=== PATIENT | female | born 1995 | race Caucasian/White ===

== ENCOUNTER → 2020-01-21 09:01 | Outpatient (CLI) | payer BC, SELFPAY ==
[2020-01-21 09:52] LABS: Add Manual Diff / Slide Review NO; Basophils Absolute Auto 0 /uL (0-100); Basophils Percent Auto 0.2 % (0-2); Eosinophils Absolute Auto 400 /uL (0-450); Eosinophils Percent Auto 3.1 % (2-4); Hematocrit 38.7 % (36-46); Hemoglobin 12.9 g/dL (12.0-16.0); Lymphocytes Absolute Auto 1500 /uL (1100-4500); Lymphocytes Percent Auto 12.8 % (25-40); Mean Corpuscular HGB Conc 33.5 % (30-36); Mean Corpuscular Hemoglobin 28.7 PG (26-34); Mean Corpuscular Volume 85.7 fL (80-100); Monocytes Absolute Auto 600 /uL (0-900); Neutrophils Absolute Auto 9500 /uL (1500-7000); Neutrophils Percent Auto 78.9 % (50-75); Platelet Count 217 X10^3/uL (150-400); Red Blood Cell Count 4.52 X10^6/uL (4.0-5.2); Red Cell Distribution Width 14.7 % (11.6-14.8)
[2020-01-21 11:09] LABS: Appearance Urine UA CLEAR; Bilirubin Urine UA NEGATIVE (NEGATIVE); Color Urine UA YELLOW; Glucose Urine UA NEGATIVE (Negative); Ketones Urine UA NEGATIVE (NEGATIVE); Leukocyte Esterase Urine UA NEGATIVE (NEGATIVE); Nitrite Urine UA NEGATIVE (Negative); Occult Blood Urine UA NEGATIVE (Negative); Protein Urine UA NEGATIVE (Negative); Specific Gravity Urine UA 1.015 (1.000-1.035); Urobilinogen Urine UA 0.2 E.U./dL (0.2)
[2020-01-21 11:40] LABS: Hepatitis B Surface Antigen NEGATIVE s/c (NEGATIVE); Rubella Antibody IgG 46.9 IU/mL (>15)
[2020-01-21 11:41] LABS: pH Urine UA 6.5 (4.5-8.0)
[2020-01-21 11:59] LABS: HIV 1 & 2 Ab/Ag 4th Gen Combo NEGATIVE (NEGATIVE); Hep C Virus Ab w/Reflex Quant NEGATIVE s/c (NEGATIVE)
[2020-01-22 04:07] LABS: RPR Screen Non Reactive (Non Reactive)
[2020-01-22 07:35] LABS: Varicella IgG Antibody 878 index (Immune >165)
== END ==
DX: Z34.02 Encounter for supervision of normal first pregnancy, second trimester (principal); Z3A.15 15 weeks gestation of pregnancy
CPT/HCPCS: 36415; 80055; 81003; 86787; 86803; 86850; 86900; 86901; 87086; 87389

== ENCOUNTER → 2020-02-17 12:08 | Outpatient (CLI) | payer BC, SELFPAY ==
[2020-02-19 20:36] LABS: AFP, Serum 37.1 ng/mL (.); Estriol, Free 1.11 ng/mL (.); Inhibin A, Dimeric 97.58 pg/mL (.); Inhibin A, MoM 0.57 (.); Maternal Ethnicity Caucasian (.); Maternal Weight 171 lbs (.); Number of Fetuses No (.); OSBR Risk 1 IN 10000 (.); Results Report (.); Test Results *Screen Negative* (.); hCG, MoM 0.76 (.); hCG, Serum 16794 mIU/mL (.)
== END ==
PROVIDERS: Referring Provider Obstetrics & Gynecology; Visit Provider Obstetrics & Gynecology
DX: Z34.02 Encounter for supervision of normal first pregnancy, second trimester (principal); Z36.0 Encounter for antenatal screening for chromosomal anomalies; Z3A.19 19 weeks gestation of pregnancy
CPT/HCPCS: 36415; 82105; 82677; 84702; 86336

== ENCOUNTER → 2020-02-21 16:03 | Outpatient (CLI) | payer BC, SELFPAY ==
--- NOTE | 2020-02-21 16:04 | DI.US.S_ITS ---
PROCEDURE: US OB >= 14 WEEKS FETUS INDICATIONS: 20 WEEK ANATOMY SCAN OUTSIDE/PRIOR DATING DATA: Last menstrual period (LMP): 10/02/19. LMP-based estimated date of delivery (AUREA): 07/26. First dating scan (date and location): 01/21/20. Estimated date of delivery (AUREA) from first dating scan: 07/03/20. TECHNIQUE: Real-time scanning was performed of the fetus, with image documentation and biometric measurements. COMPARISON: [facility], , OB >= 14 WEEKS FETUS, 01/21/2020, 8:42. FINDINGS: General: A single living intrauterine gestation is present. Presentation: Vertex. Placenta: Placental position is posterior, without previa. Amniotic fluid index: 10.9 cm, normal range is 5-24 cm. heart rate: 143 beats per minute. Maternal cervical canal: 4.5 cm long. Normal lower limit is 2.5 cm. biometrics: Biparietal diameter: 5.0 cm, 21 weeks, 2 days Head circumference: 18.6 cm, 20 weeks, 6 days Abdominal circumference: 14.9 cm, 20 weeks, one day Femur length: 3.4 cm, 20 weeks, 5 days Estimated gestational age from initial scan: 21 weeks, zero days Composite gestational age from present scan: 20 weeks, 6 days Estimated weight and percentile: 359 g, 22nd percentile Measurement variability for biometric dating: +/- 7 days from 14 weeks to 15 weeks 6 days gestation, +/- 10 days from 16 weeks to 21 weeks 6 days gestation, +/- 2 weeks from 22 weeks to 27 weeks 6 days gestation, +/- 3 weeks for 28 weeks gestation or later. weight reference: 4500 g or EFW >90/95% is considered macrosomia or large for gestational age. EFW <10% is small for gestational age. EFW 5% or less is considered intra-uterine growth restriction. Anatomic survey: Neuro: Ventricles are non-dilated at less than 10 mm. Cisterna magna is normal at 3-11 mm. Cerebellum is normal in size and morphology. Nuchal skin fold: Normal at less than 6 mm between 14-21 weeks gestational age. Face: Nose and lips, facial profile are normal. Spine: No evidence for spina bifida. Heart: The 4 chamber heart has a normal sonographic appearance. The outflow tracts are poorly characterized. Diaphragm: Diaphragm is intact. Stomach: Left-sided stomach is present. Kidneys: No hydronephrosis. Normal is less than 5 mm in 2nd trimester, less than 7 mm in 3rd trimester. Cord: 3-vessel cord has orthotopic insertion. Bladder: Normal in size. Extremities: All 4 extremities identified. IMPRESSION: 1. Single live intrauterine gestation with a composite gestational age of 20 weeks, 6 days, which is concordant with dates by initial scan. 2. Poor visualization of the ventricular outflow tracts. Otherwise no sonographic anatomic abnormalities. Dictated by: Yesy Aguirre M.D. on 02/21/2020 at 20:36 Approved by: Yesy Aguirre M.D. on 02/21/2020 at 20:42
== END ==
PROVIDERS: Referring Provider Obstetrics & Gynecology; Visit Provider Obstetrics & Gynecology
DX: Z34.02 Encounter for supervision of normal first pregnancy, second trimester (principal); Z3A.20 20 weeks gestation of pregnancy
CPT/HCPCS: 76811

== ENCOUNTER → 2020-03-09 12:18 | Outpatient (CLI) | payer BC, SELFPAY ==
--- NOTE | 2020-03-09 12:21 | DI.US.S_ITS ---
PROCEDURE: US OB FOLLOW UP INDICATIONS: RE-EVALUATE OUTFLOW TRACTS OUTSIDE/PRIOR DATING DATA: Last menstrual period (LMP): 10/02/19. LMP-based estimated date of delivery (AUREA): 07/08/20. First dating scan (date and location): 01/21/20. Estimated date of delivery (AUREA) from first dating scan: 07/03/20. TECHNIQUE: Real-time scanning was performed of the fetus, with image documentation. Endovaginal scanning: Deferred COMPARISON: [facility], OB >= 14 WEEKS FETUS, 02/21/2020, 16:19. FINDINGS: A single living intrauterine gestation is present. Presentation: Breech. Placenta: Placental position is posterior, without previa. Amniotic fluid index: 15.6 cm, normal range is 5-24 cm. largest pocket is 4.7 cm. heart rate: 133 beats per minute. Maternal cervical canal: 3.3 cm long. Normal lower limit is 2.5 cm. Estimated gestational age from initial scan: 23 weeks, 3 days IMPRESSION: 1. Single living intrauterine . 2. Cardiac outflow tracts are well-seen and appear normal. Dictated by: Trudy Medrano M.D. on 03/09/2020 at 16:33 Approved by: Trudy Medrano M.D. on 03/09/2020 at 16:36
== END ==
PROVIDERS: Referring Provider Obstetrics & Gynecology; Visit Provider Obstetrics & Gynecology
DX: Z36.2 Encounter for other antenatal screening follow-up (principal); Z3A.23 23 weeks gestation of pregnancy
CPT/HCPCS: 76816

== ENCOUNTER → 2020-04-07 12:27 | Outpatient (CLI) | payer BC, SELFPAY ==
[2020-04-07 14:29] LABS: Hematocrit 36.5 % (36-46); Hemoglobin 12.4 g/dL (12.0-16.0)
[2020-04-07 14:42] LABS: GTT (PREG) 1 Hour PP 50gm Dose 119 mg/dL (76-139)
== END ==
DX: Z34.02 Encounter for supervision of normal first pregnancy, second trimester (principal); Z3A.26 26 weeks gestation of pregnancy
CPT/HCPCS: 36415; 82950; 85014; 85018

== ENCOUNTER → 2020-06-10 08:38 | Outpatient (CLI) | payer BC, SELFPAY | PROVIDERS: Visit Provider Specialist | DX: Z34.03 Encounter for supervision of normal first pregnancy, third trimester (principal) ==

== ENCOUNTER → 2020-06-18 10:28 | Outpatient (CLI) | payer BC, SELFPAY ==
[2020-06-19 10:13] LABS: Strep Grp B PCR NEG for Grp B Strep
== END ==
PROVIDERS: Visit Provider Obstetrics & Gynecology
DX: Z34.03 Encounter for supervision of normal first pregnancy, third trimester (principal); Z3A.37 37 weeks gestation of pregnancy
CPT/HCPCS: 87653

== ENCOUNTER 2020-07-07 09:13 | Outpatient (CLI) | payer BC, SELFPAY ==
--- NOTE | 2020-07-08 21:34 | PM.OBTRLD ---
Visit Information Visit Information Date of evaluation: 07/07/20 Primary OB Provider: Ekaterina Sandoval Reason for Evaluation: Yes non-stress test non-stress test reason: other (40 weeks) FOR[facility]LY [facility] Medical History (Updated 02/06/20 @ 18:45 by Shelli Plascencia) Asthma (Acute ~1998) Internal hemorrhoid (Acute ~2013) Migraine (Acute ~2009) Mononucleosis (Acute) Seasonal allergic rhinitis (Acute) Surgical History (Updated 03/15/20 @ 20:15 by Shelli Plascencia) Anesthesia (Resolved) History of endoscopy (Acute) History of oral surgery (Acute) [place] teeth removed (Acute) Family History (Updated 03/15/20 @ 20:19 by Shelli Plascencia) Mother Leaky heart valve Hypothyroid Heart palpitations Endometriosis Father Diabetes mellitus Grandmother Hyperlipidemia Diabetes mellitus Cancer History of heart disease Hypertension Grandfather Hyperlipidemia Leaky heart valve Hypertension Grandmother Diabetes mellitus Hyperlipidemia History of open heart surgery History of heart disease Hypertension Lung cancer Grandfather Diabetes mellitus Hypertension Hyperlipidemia Social History marital status: household members: spouse and family (Currently living with extended family) pets and animals: Yes (X 3 dogs in family unit now) education level: college (PhD Student) current occupational exposures/hazards: No 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
== END 2020-07-07 10:03 | disposition home or self-care (01) ==
LOC: LABOR 09:49 → OB 07-08 10:26
PROVIDERS: PCP Obstetrics & Gynecology; Referring Provider Obstetrics & Gynecology; Visit Provider Obstetrics & Gynecology
DX: O48.0 Post-term pregnancy (principal); Z3A.40 40 weeks gestation of pregnancy
CPT/HCPCS: 59025; G0378; G0379

== ENCOUNTER 2020-07-11 09:04 | Inpatient (IN) | payer BC, SELFPAY ==
[2020-07-11 10:29] LABS: Add Manual Diff / Slide Review NO; Basophils Absolute Auto 100 /uL (0-100); Basophils Percent Auto 0.9 % (0-2); Eosinophils Absolute Auto 200 /uL (0-450); Hematocrit 40.4 % (36-46); Hemoglobin 13.5 g/dL (12.0-16.0); Lymphocytes Absolute Auto 1800 /uL (1100-4500); Lymphocytes Percent Auto 16.1 % (25-40); Mean Corpuscular HGB Conc 33.4 % (30-36); Monocytes Absolute Auto 700 /uL (0-900); Monocytes Percent Auto 6.1 % (3-14); Neutrophils Absolute Auto 8200 /uL (1500-7000); Neutrophils Percent Auto 74.9 % (50-75); Platelet Count 176 X10^3/uL (150-400); Red Blood Cell Count 4.65 X10^6/uL (4.0-5.2); Red Cell Distribution Width 13.6 % (11.6-14.8); White Blood Cell Count 10.9 X10^3/uL (4.5-11.0)
[2020-07-11 10:58] LABS: COVID19 -Nasal RAPID Negative (Negative)
[2020-07-11] MEDS: LACTATED RINGERS 1,000 ML 100 ML IV (11:02)
[2020-07-11] MEDS: CEFAZOLIN 2 GM/100 ML FROZ.PIGGY IV (11:02)
[2020-07-11 11:21] VITALS: BP 112/70
--- NOTE | 2020-07-11 17:08 | P.HPOB_ITS ---
OB HPI Date/Time Date of admission: 07/11/20 Date Patient Seen: 07/11/20 Time Patient Seen: 08:45 History of Present Condition Chief complaint: Rule out ruptured membranes : 1 Para: 0 Estimated Date of Delivery: 07/08/20 Estimated Gestational Age (weeks): 40+ 3 Narrative: Elizabeth Bush is a 24 year old female 1 para 0 with leakage of fluid starting at 9:00 p.m. last evening. She had a few episodes of trickling overnight. Small amount of bloody discharge. No significant contractions. Indications Indication for induction OB: other (Leakage of fluid) History of Present care: good care, initiated at week # (8), number of visits (14) and pounds weight gain Dating criteria: LMP confirmed by 1st trimester US Ultrasounds: normal 1st trimester US and normal mid trimester US Obstetrical complications: none Medical complications: none Preadmission Labs Blood type: A (+) positive -: Antibody screen: negative, GBS status: negative, HBsAG: negative, HIV: negative and RPR/VDLR: negative -: Rubella: immune and Varicella: immune HCT: 40.4 HCAB: negative PAP: Normal Quad screen: Normal Urine: Negative 1 hr GTT: 119 Evaluation Evaluation Baseline heart rate: 135 Variability: Moderate (11-25) monitor accelerations: Present monitor decelerations: Absent Contraction Frequency (minutes): 3 Uterine Contraction Intensity: Moderate Cervical dilation (cm): 3 Cervical effacement (%): 80 station: +1 Laboratory results: Laboratory Tests 07/11/20 07/11/20 07/11/20 10:00 10:00 10:10 WBC 10.9 RBC 4.65 Hgb 13.5 Hct 40.4 MCV 87.0 MCH 29.0 MCHC 33.4 RDW 13.6 Plt Count 176 Neut % (Auto) 74.9 Lymph % (Auto) 16.1 L [facility] % (Auto) 6.1 Eos % (Auto) 2.0 Baso % (Auto) 0.9 Neut # (Auto) 8200 H Lymph # (Auto) 1800 [facility] # (Auto) 700 Eos # (Auto) 200 Baso # (Auto) 100 COVID-19 PCR Negative Blood Type A Positive Antibody Screen Negative Non-invasive Membranes Rupture Test: positive [facility] Medical History (Updated 02/06/20 @ 18:45 by Shelli Plascencia) Asthma (Acute ~1998) Internal hemorrhoid (Acute ~2013) Migraine (Acute ~2009) Mononucleosis (Acute) Seasonal allergic rhinitis (Acute) Surgical History (Updated 03/15/20 @ 20:15 by Shelli Plascencia) Anesthesia (Resolved) History of endoscopy (Acute) History of oral surgery (Acute) [place] teeth removed (Acute) Family History (Updated 03/15/20 @ 20:19 by Shelli Plascencia) Mother Leaky heart valve Hypothyroid Heart palpitations Endometriosis Father Diabetes mellitus Grandmother Hyperlipidemia Diabetes mellitus Cancer History of heart disease Hypertension Grandfather Hyperlipidemia Leaky heart valve Hypertension Grandmother Diabetes mellitus Hyperlipidemia History of open heart surgery History of heart disease Hypertension Lung cancer Grandfather Diabetes mellitus Hypertension Hyperlipidemia Social History marital status: household members: spouse and family (Currently living with extended family) pets and animals: Yes (X 3 dogs in family unit now) education level: college (PhD Student) current occupational exposures/hazards: No 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/anabaptist: Mandaeism Smoking Status: Never smoker second hand exposure: No alcohol intake: former (pre- : rare social ) substance use type: does not use Meds Home Medications and Allergies Home Medications Medication Instructions Recorded Confirmed Type prenat.vits,getachew,ikx-nzak-njdar 1 tab PO DAILY 01/20/20 07/11/20 History Allergies Allergy/AdvReac Type Severity Reaction Status Date / Time No Known Drug Allergies Allergy Verified 07/07/20 08:31 Exam Vital Signs (past 8 hours): - 07/11/20 11:21 Blood Pressure 112/70 Narrative Exam Narrative: Generally: Patient walking around in room, no acute distress Lungs: Clear to auscultation bilaterally Cardiovascular: Regular rate and rhythm Fundal height: 39 cm Estimated weight 7 1/2 - 8 weeks Extremities: No edema, 1+ DTRs Objective Labs Result Diagrams: 07/11/20 10:00 Labs: Laboratory Results - last 24 hr 07/11/20 07/11/20 07/11/20 10:00 10:00 10:10 WBC 10.9 RBC 4.65 Hgb 13.5 Hct 40.4 MCV 87.0 MCH 29.0 MCHC 33.4 RDW 13.6 Plt Count 176 Neut % (Auto) 74.9 Lymph % (Auto) 16.1 L [facility] % (Auto) 6.1 Eos % (Auto) 2.0 Baso % (Auto) 0.9 Neut # (Auto) 8200 H Lymph # (Auto) 1800 [facility] # (Auto) 700 Eos # (Auto) 200 Baso # (Auto) 100 COVID-19 PCR Negative Blood Type A Positive Antibody Screen Negative Assessment and Plan Assessment and Plan Assessment and Plan narrative: Assessment: 24-year-old 1 para 0 at 40-,3/7 weeks gestation with leakage of fluid since 9:00 p.m. last night Not in active labor Plan: Begin antibiotics with cefazolin 2 g IV followed by 1 g IV Q 8 hours Artificial rupture of membranes performed with a gush of clear amniotic fluid Nipple stimulation and ambulation Pitocin augmentation as needed Epidural as necessary Expected management to spontaneous vaginal delivery Time Spent with Patient Total time spent with greater than 50% in coordination of care (as documented) at patient's floor/unit and/or counseling patient:: 15-24 minutes
[2020-07-11] MEDS: CEFAZOLIN 1 GM/50 ML FROZ.PIGGY IV (19:00)
[2020-07-12] MEDS: CEFAZOLIN 1 GM/50 ML FROZ.PIGGY IV (03:08)
--- NOTE | 2020-07-12 05:45 | PM.OBPNLAB ---
Date/Time Date Patient Seen: 07/12/20 Time Patient Seen: 05:45 Pain Control Pain control: tolerating well Pelvic Exam Dilation (cm): 7 Effacement (%): 90 station: +2 Amniotic membrane status: Ruptured Contractions Contractions on admission: regular Monitor mode: External Contraction frequency (min): 4 Contraction duration (min): 1 Contraction pattern: Regular Contraction intensity: Moderate Status status: Category ll Heart Rate Baseline: 135 Monitor Accelerations: Present Monitor Decelerations: Early Monitor Variability: Moderate Assessment and Plan Assessment: other (Stalled labor) Comments: Epidural Pitocin augmentation Expectant management to
[2020-07-12] MEDS: LACTATED RINGERS 1,000 ML 100 ML IV ×2 (06:06→10:40)
[2020-07-12] MEDS: OXYTOCIN PREMIX 30 UNIT/500 ML PLAST..BAG IV (07:05)
--- NOTE | 2020-07-12 10:04 | PM.OBPNLAB ---
Date/Time Date Patient Seen: 07/12/20 Time Patient Seen: 10:04 Pain Control Pain control: epidural Pelvic Exam Dilation (cm): 9 Effacement (%): 90 station: +1 Amniotic membrane status: Ruptured Contractions Monitor mode: External Contraction frequency (min): 5 Contraction duration (min): 1 Contraction pattern: Regular Contraction intensity: Strong/Firm Status status: Category lll Heart Rate Baseline: 135 Monitor Accelerations: Present Monitor Decelerations: Prolonged Monitor Variability: Minimal Assessment and Plan Assessment: other ( intolerance of labor) Plan:
[2020-07-12] MEDS: CEFAZOLIN 2 GM/100 ML FROZ.PIGGY IV (10:38)
--- NOTE | 2020-07-12 10:48 | SUR.OPER ---
Supine on Padded OR bed, head on pillow, safety belt at thigh, arms secured on padded arm boards at <90 degrees abduction. Bump under right buttock. Legs uncrossed with pillow under knees, gel pad to heels, tape over blanket to lower legs.
--- NOTE | 2020-07-12 10:50 | SUR.OPER ---
Viable male delivered at 10:40. Cord blood vials x2 and placenta sent with L&D RN. Cord segment given to Repiratory therapist.
[2020-07-12 11:29] VITALS: BP 104/68; PULSE 76; RESP 16; TEMP 36.6; O2SAT 98
--- NOTE | 2020-07-12 11:31 | P.OP_ITS ---
Operative Date/Time/Diagnoses Date of procedure: 07/12/20 Time of procedure: 11:31 Pre-op diagnosis: intolerance of labor Prolonged rupture of membranes Post-op diagnosis: same Procedure & Clinicians Procedure: Procedures Operation Date: 07/12/20 10:30 Actual Procedures Side Surgeon p Section Ekaterina Sandoval MD Indications: intolerance of labor Prolonged rupture of membranes Surgeon: Ekaterina Sandoval Rubber Belt Splicer: Mira Squires Anesthesia Type: Epidural (With Duramorph) Operative Notes Findings: Live male in the LOT presentation Nuchal cord x2 Normal uterus, tubes, and ovaries Closure Type: primary Specimen(s): other (Cord bloods, cord pH, placenta) Applied: catheter (To continuous drainage) Estimated blood loss (mL): 800 Blood products transfused: none Procedure in detail: After informed consent was obtained, the patient was taken to the operating room where she was placed in the dorsal supine position. Her epidural had already been dosed. She was prepped and draped in the usual sterile fashion. A time-out was performed. After epidural anesthesia was found be adequate, a Pfannenstiel skin incision was made 2 finger breaths above the pubic symphysis and carried through to the underlying layer of fascia. The fascia was nicked in the midline. The incision was extended bilaterally with the Multani scissors. The superior aspect of the fascial incision was grasped with the Renato clamps, elevated, and underlying rectus muscles dissected off sharply and bluntly. Attention was then turned to the inferior aspect of this incision which in a similar fashion was grasped with Renato clamps, elevated, and the underlying rectus muscles were dissected off sharply and bluntly. The rectus muscles were in the midline, the peritoneum was identified and entered sharply with the Metzenbaum scissors. This incision was extended bluntly. The bladder blade was inserted. The vesicouterine peritoneum was identified, grasped with a pickup, and entered sharply with the Metzenbaum scissors. This incision was extended bilaterally, and the bladder flap created digitally. The bladder blade was re-inserted. The lower uterine segment was incised in a transverse fashion with a scalpel. Upon entering the amniotic sac there was a small amount of clear amniotic fluid. The uterine incision was extended bluntly. The 's head was delivered there was a double nuchal cord which was reduced. The nose and mouth were suctioned with bulb suction. The remainder of the body delivered without difficulty. The cord was double clamped and cut. A piece of cord for cord pH was obtained. Cord bloods were obtained. The placenta was delivered spontaneously. The uterus was cleared of all clots and debris. The uterine incision was closed with 1. Chromic in a running interlocking fashion. A 2nd layer the same suture was used for an imbricating layer. Hemostasis was achieved. The tubes and ovaries were examined and were found to be normal. The gutters were cleared of all clots and debris. The bladder flap was reapproximated using 2 0 Vicryl in a running fashion. The parietal peritoneum was closed using 2 0 Vicryl in a running fashion. The fascia was closed using 0 Vicryl in a running fashion. Hemostasis was achieved in the subcutaneous layer using the Bovie and irrigated with warm normal saline. Five simple interrupted sutures with 3 0 Vicryl were placed to reapproximate the subcutaneous layer. The skin was closed with 4 0 Biosyn in a subcuticular fashion. Steri-Strips and an Aquacel dressing were placed. The uterus was expressed of a small amount of old blood. Sponge, lap, and instrument counts were correct x2. The patient tolerated the procedure well, and was taken to PACU in stable condition. Complications: none Post-operative Condition: stable Disposition: PACU Plan for aftercare: To the center after recovery
[2020-07-12 11:34] VITALS: BP 113/67; PULSE 79; RESP 16; O2SAT 98
[2020-07-12] MEDS: ONDANSETRON 4 MG/2 ML INJ IV (11:37)
[2020-07-12] MEDS: KETOROLAC 30 MG/ML VIAL IV ×2 (11:41→17:59)
[2020-07-12 11:43] VITALS: BP 107/74; PULSE 75; RESP 16; O2SAT 98
[2020-07-12 11:44] VITALS: BP 109/70; PULSE 70; RESP 16; O2SAT 98
[2020-07-12 15:34] VITALS: PULSE 166; RESP 45; O2SAT 97
[2020-07-12 17:59] VITALS: TEMP 36.6
[2020-07-13] MEDS: KETOROLAC 30 MG/ML VIAL IV
[2020-07-13] MEDS: LACTATED RINGERS 1,000 ML 100 ML IV (00:43)
[2020-07-13 06:13] LABS: Hematocrit 31.6 % (36-46); Hemoglobin 10.8 g/dL (12.0-16.0)
[2020-07-13] MEDS: PRENATAL VIT,CALC/IRON/FOLIC 1 TABLET 1 TAB PO (07:59)
[2020-07-13] MEDS: IBUPROFEN 600 MG TABLET PO ×3 (07:59→19:54)
[2020-07-13] MEDS: DOCUSATE 250 MG CAPSULE PO (07:59)
--- NOTE | 2020-07-13 11:41 | PM.OBPN.1 ---
Subjective - OB Subjective Patient comments: no complaints, pain well controlled and tolerating diet baby status: doing well and nursing well feeding status: exclusively breast feeding Date Patient Seen: 07/13/20 Time Patient Seen: 11:41 Interval history: Patient is a 24-year-old 1 para 1 postop day # 1 status post emergent primary low-transverse section secondary to intolerance of labor. Patient has voided without the catheter. The catheter was removed last night. Her bleeding is tapering. She is ambulating without assistance. She is tolerating a diet. No flatus as of yet. Exam Vital Signs (past 8 hours): Oxygen Delivery Method Room Air Narrative Exam Narrative: Generally: Patient is sitting up in bed, no acute distress Lungs: Clear to auscultation bilaterally Cardiovascular: Regular rate and rhythm Abdomen: Soft, good bowel sounds Fundus: Firm at U -2 Incision: Clean dry and intact with Aquacel dressing Extremities: Negative Homans, no edema Objective Labs Result Diagrams: 07/13/20 06:03 Labs: Laboratory Results - last 24 hr 07/13/20 06:03 Hgb 10.8 L Hct 31.6 L Assessment & Plan Plan day: 1 plan OB: routine postop care Time Spent With Patient Time: Total time spent is greater than 50% in coordination of care (as documented) at patient's floor/unit and/or counseling patient: Time with patient: 15-24 minutes
[2020-07-14] MEDS: IBUPROFEN 600 MG TABLET PO ×2 (02:20→07:42)
[2020-07-14] MEDS: PRENATAL VIT,CALC/IRON/FOLIC 1 TABLET 1 TAB PO (07:41)
[2020-07-14] MEDS: LANOLIN OINT 7 GM 1 APPLIC TOP (07:41)
[2020-07-14] MEDS: DOCUSATE 250 MG CAPSULE PO (07:42)
[2020-07-14 08:21] VITALS: BP 109/70; PULSE 166; RESP 45; TEMP 36.6
--- NOTE | 2020-07-14 19:28 | PM.OBPN.1 ---
Subjective - OB Subjective Patient comments: no complaints, pain well controlled, tolerating diet and flatus present baby status: doing well and nursing well [place] feeding status: exclusively breast feeding Date Patient Seen: 07/14/20 Time Patient Seen: 07:05 Interval history: 24-year-old 1 para 1 postop day # 2 status post primary low-transverse section due to intolerance of labor Exam Vital Signs (past 8 hours): Oxygen Delivery Method Room Air Narrative Exam Narrative: Generally: Patient walking around in room, no acute distress Lungs: Clear to auscultation bilaterally Cardiovascular: Regular rate and rhythm Abdomen: Soft, good bowel sounds Fundus: Firm at U -1 Incision: Clean dry and intact with Aquacel dressing Extremities: Negative Homans, no edema Objective Labs Result Diagrams: 07/13/20 06:03 Assessment & Plan Plan day: 2 plan OB: discharge home Comments: Follow-up 1 week for Aquacel dressing removal Patient to call with fever, chills, redness or drainage around the incision, or bleeding vaginally more than a pad an hour Time Spent With Patient Time: Total time spent is greater than 50% in coordination of care (as documented) at patient's floor/unit and/or counseling patient: Time with patient: 15-24 minutes
--- NOTE | 2020-07-14 19:32 | P.DS_ITS ---
Discharge Providers Provider Date of admission: 07/11/20 09:04 Discharge Date: 07/14/20 Primary care physician: Ekaterina Sandoval MD Consults: 07/12/20 17:41 Consult to Senior Planning Manager Routine Comment: Discharge provider: Ekaterina Sandoval MD Summary Hospital Course Date Patient Seen: 07/14/20 Time Patient Seen: 07:05 Procedures: Pitocin augmentation of labor Epidural analgesia Primary low-transverse section Hospital Course: Patient is a 24-year-old 1 para 1 who presented on July 11, 2020 with leakage of fluid. Her AmniSure was positive. She did some walking and nipple stimulation with increasing contractions. Artificial rupture of membranes was performed with a gush of clear amniotic fluid. Patient was started on antibiotics and received them every 8 hours. On the morning of July 12, 2020 Pitocin augmentation was started. She received an epidural for pain management. She progressed to 8-9 cm. The baby's heart rate tracing became worrisome with deep decelerations lasting approximately a minute down to the 50s to 60s. A decision was made to proceed with a primary low-transverse section. Baby was found to have a nuchal cord x2. Her postoperative course was unremarkable. Peripartum Data Infant Delivery Method: Emergency Section Laceration Description: None Episiotomy description: None Procedures: Pitocin augmentation of labor Epidural analgesia Primary low-transverse section complications: none [place] 1: Gender: Male Disposition of : home Status at Discharge Cognitive/behavioral status at discharge: oriented Functional status at discharge: independent ambulation Overall status at discharge: patient is progressing back to baseline Time Spent with Patient Time attestation: Total time spent providing and/or coordinating discharge services: Time spent: Less than 30 minutes Objective Labs Result Diagrams: 07/13/20 06:03 Exam Vital Signs (past 8 hours): Oxygen Delivery Method Room Air Narrative Exam Narrative: Generally: Patient walking around in room, no acute distress Lungs: Clear to auscultation bilaterally Cardiovascular: Regular rate and rhythm Abdomen: Soft and flat. Good bowel sounds Fundus: Firm at U -1 Incision: Clean dry and intact with Aquacel dressing Extremities: Negative Homans, no edema Discharge Plan Discharge Plan Patient Disposition: Home Discharge comment: Call with fever, chills, redness or drainage around incision or bleeding vaginally more than a pad in an hour Discharge orders & Medications Prescriptions: New oxycodone-acetaminophen [Percocet] 5-325 mg tablet 1 tab PO Q4-6H PRN (Reason: pain) Qty: 20 RF: 0 Continued prenat.vits,getachew,izw-kior-jzoay Tablet 1 tab PO DAILY RF: 0 Follow up/Referrals: Ekaterina Sandoval MD [Primary Care Provider] - 07/20/20 (Aquacel removal Call [phone] with any questions or concerns) Diet/Activity/Treatments Activity: No heavy lifting. Nothing more than the baby or a gallon of milk Skin/Wound/Dressing Care Report to your healthcare provider any signs of infection, such as:: chills, fever, increased pain, unusual drainage and unusual redness Dressing: Do not remove Visit Report/Discharge Packet Instructions: DI for , DI for Prescription Opioid Use Stand Alone Forms: Discharge: Care Discharge Data Primary Care Provider: Ekaterina Sandoval Discharges patient from system. Discharge Date/Time: 07/14/20 09:15
== END 2020-07-14 09:15 | disposition home or self-care (01) | DRG 788 ==
PROVIDERS: Admitting Provider Obstetrics & Gynecology; PCP Obstetrics & Gynecology; Referring Provider Obstetrics & Gynecology; Visit Provider Obstetrics & Gynecology
PROC: 10D00Z1 Extraction of Products of Conception, Low, Open Approach (ICD-10-PCS; CPT 59514; principal; 2020-07-12 10:30)
DX: O48.0 Post-term pregnancy (principal); O76 Abnormality in fetal heart rate and rhythm complicating labor and delivery; Z3A.40 40 weeks gestation of pregnancy; Z37.0 Single live birth; O69.81X0 Labor and delivery complicated by cord around neck, without compression, not applicable or unspecified; Z11.59 Encounter for screening for other viral diseases; O63.1 Prolonged second stage (of labor)
CPT/HCPCS: 01967; 01968; 36415; 59050; 59510; 59514; 84112; 85014; 85018; 85025; 86850; 86900; 86901; 87635; G0379; J0690; J1885; J2274; J2405; J2590

== ENCOUNTER 2024-09-13 12:49 | Emergency (ER) | payer OTHER, SELFPAY ==
[2024-09-13 12:56] VITALS: BP 106/70; PULSE 88; RESP 20; TEMP 37.3; O2SAT 96; BMI 24.5
--- NOTE | 2024-09-13 13:13 | DI.RAD.S_ITS ---
PROCEDURE: XR CHEST 2V INDICATIONS: cough, upper respiratory complaints t-30 TECHNIQUE: 2 views of the chest were acquired. COMPARISON: None. FINDINGS: Surgical changes and devices: None. Lungs and pleura: Lungs are clear on the frontal view but on the lateral view there is a pattern of increased radiodensity over the low thoracic spine. This can indicate mild or early posterior pneumonia, likely at the left lower lobe.. No pleural effusions or pneumothorax. Mediastinum: Mediastinal contours are normal. Heart size is normal. Bones and chest wall: No suspicious bony abnormalities. Soft tissues appear unremarkable. IMPRESSION: Questionable finding of mild or early retrocardiac left lower lobe pneumonia seen only on the lateral view. The frontal view by itself would not raise suspicion. Dictated by: Booker Arshad M.D. on 09/13/2024 at 13:37 Approved by: Booker Arshad M.D. on 09/13/2024 at 13:38
--- NOTE | 2024-09-13 13:24 | ED.URI ---
HPI - URI/Sore Throat <Sonal Summers PA-C - Last Filed: 09/13/24 20:55> General Chief Complaint: Upper Respiratory Symptoms Stated Complaint: persistent cough last 30 days Time Seen by Provider: 09/13/24 13:24 Source: patient Mode of arrival: Ambulatory History of Present Illness HPI Narrative: Ms. Bush is a pleasant 28-year-old female who presents to the emergency department for cough and congestion x1 month. Patient reports having occasional night sweats and having an episode of dizziness in the shower which resolved. She has been taking unzf-szl-vqutlnd cough medicine and Mucinex without relief. Reports a productive cough green/yellow sputum and clear nasal drainage over the last 4 weeks. Admits to sore throat. States that symptoms appeared to be improving about 2 weeks ago however they then returned. She denies chest pain, shortness of breath, abdominal pain, nausea, vomiting, diarrhea, dysuria. Related Data Home Medications Medication Instructions Recorded Confirmed prenat.vits,getachew,zlu-incv-xpbit 1 tab PO DAILY 01/20/20 10/16/23 Previous Rx's Medication Instructions Recorded valacyclovir 500 mg tablet 500 mg PO DAILY #90 tabs 10/16/23 valacyclovir 1 gram tablet 1,000 mg PO DAILY #5 tabs 12/18/23 (Valtrex) benzonatate 100 mg capsule 100 mg PO BID-TID PRN cough #15 09/13/24 caps doxycycline hyclate 100 mg capsule 100 mg PO BID 5 days #10 caps 09/13/24 Allergies Allergy/AdvReac Type Severity Reaction Status Date / Time No Known Drug Allergies Allergy Verified 10/16/23 08:36 Review of Systems <Sonal Summers PA-C - Last Filed: 09/13/24 20:55> Review of Systems ROS Unobtainable: All systems reviewed & are unremarkable except as noted in HPI and below Patient History <Sonal Summers PA-C - Last Filed: 09/13/24 20:55> Medical History Haswell-Schlatter's disease (~2005) Herpes Hypothyroidism (~2022) Mononucleosis Internal hemorrhoid (~2013) Migraine (~2009) Seasonal allergic rhinitis Asthma (~1998) Surgical History History of section (~07/12/20) Anesthesia History of endoscopy [place] teeth removed History of oral surgery Family History Mother Leaky heart valve Hypothyroid Heart palpitations Endometriosis Hyperlipidemia Father Diabetes mellitus Hypertension Hyperlipidemia Grandmother Hyperlipidemia Diabetes mellitus Cancer History of heart disease Hypertension Alzheimer's dementia Grandfather Hyperlipidemia Leaky heart valve Hypertension Alzheimer's dementia Stroke Grandmother Diabetes mellitus Hyperlipidemia History of open heart surgery History of heart disease Hypertension Lung cancer Grandfather Diabetes mellitus Hypertension Hyperlipidemia Stroke Social History marital status: household members: spouse and family (Currently living with extended family) pets and animals: Yes (X 3 dogs in family unit now) education level: college (PhD Student) current occupational exposures/hazards: No 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 Well-developed patient, in no acute distress. HEAD: Atraumatic. Normocephalic. EYES: Pupils equal round and reactive. Extraocular motions intact. No scleral icterus. No injection or drainage. ENT: Nose without bleeding. Clear drainage. Erythematous posterior oropharynx with right tonsilith. Oropharynx is widely patent. NECK: Trachea midline. Non tender CARDIOVASCULAR: Regular rate and rhythm. RESPIRATORY: Very subtle coarse breath sounds left lower lobe. No wheezing, stridor, respiratory distress. Talking in clear, full sentences. GASTROINTESTINAL: Abdomen soft, non-tender, nondistended. EXTREMITIES: No edema or joint tenderness. NEURO: AOx3. SKIN: No rash or erythema of visible areas Initial Vital Signs Initial Vital Signs: Vital Signs Temperature 99.2 F 09/13/24 12:56 Pulse Rate 88 09/13/24 12:56 Respiratory Rate 20 09/13/24 12:56 Blood Pressure 106/70 09/13/24 12:56 Pulse Oximetry 96 09/13/24 12:56 Oxygen Delivery Method Room Air 09/13/24 12:56 <DO Jacob Garcia Last Filed: 09/14/24 07:24> Initial Vital Signs Initial Vital Signs: Vital Signs Temperature 99.2 F 09/13/24 12:56 Pulse Rate 88 09/13/24 12:56 Respiratory Rate 20 09/13/24 12:56 Blood Pressure 106/70 09/13/24 12:56 Pulse Oximetry 96 09/13/24 12:56 Oxygen Delivery Method Room Air 09/13/24 12:56 Course <Sonal Summers PA-C - Last Filed: 09/13/24 20:55> Orders Ordered: Discontinued Medications Doxycycline Hyclate (Doxycycline Hyclate 100 Mg Tablet) 100 mg PO NOW ONE Stop: 09/13/24 15:52 Last Admin: 09/13/24 16:03 Dose: 100 mg Documented By: SPF Vital Signs Vital signs: Vital Signs - 8 hr 09/13/24 12:56 09/13/24 16:04 Temperature 99.2 F Pulse Rate 88 95 H Respiratory Rate 20 18 Blood Pressure 106/70 108/71 Pulse Oximetry 96 97 Oxygen Delivery Method Room Air Room Air <DO Jacob Garcia Last Filed: 09/14/24 07:24> Orders Ordered: Discontinued Medications Doxycycline Hyclate (Doxycycline Hyclate 100 Mg Tablet) 100 mg PO NOW ONE Stop: 09/13/24 15:52 Last Admin: 09/13/24 16:03 Dose: 100 mg Documented By: SPF Vital Signs Vital signs: Vital Signs - 8 hr 09/13/24 12:56 09/13/24 16:04 Temperature 99.2 F Pulse Rate 88 95 H Respiratory Rate 20 18 Blood Pressure 106/70 108/71 Pulse Oximetry 96 97 Oxygen Delivery Method Room Air Room Air MDM - URI/Sore Throat <MARIA A Mccallum Last Filed: 09/13/24 20:55> Lab Data Labs: Lab Results 09/13/24 Range/Units 13:35 Chlamy pneumoniae PCR Not detected (Not Detect) Adenovirus (PCR) Not detected (Not Detect) B. pertussis DNA (PCR) Not detected (Not Detect) B.parapertussis DNA PCR Not detected (Not Detecte) Coronavirus OC43 (PCR) Not detected (Not Detect) Coronavirus HKU1 (PCR) Not detected (Not Detect) Coronavirus 229E (PCR) Not detected (Not Detect) SARS-CoV-2 (PCR) Not detected (Not Detecte) Coronavirus NL63 (PCR) Not detected (Not Detect) Human Metapneumovir PCR Not detected (Not Detect) Influenza Type A (PCR) Not detected (Not Detect) Influenza Type B (PCR) Not detected (Not Detect) M. pneumoniae (PCR) Not detected (Not Detect) Parainfluenza 1 (PCR) Not detected (Not Detect) Parainfluenza 2 (PCR) Not detected (Not Detect) Parainfluenza 3 (PCR) Not detected (Not Detect) Parainfluenza 4 (PCR) Not detected (Not Detect) RSV (PCR) Not detected (Not Detect) Entero/Rhino (PCR) Detected H (Not Detect) Group A Strep (PCR) Negative (Negative) Imaging Data Chest x-ray: Radiologist's Impression: FINDINGS: Surgical changes and devices: None. Lungs and pleura: Lungs are clear on the frontal view but on the lateral view there is a pattern of increased radiodensity over the low thoracic spine. This can indicate mild or early posterior pneumonia, likely at the left lower lobe.. No pleural effusions or pneumothorax. Mediastinum: Mediastinal contours are normal. Heart size is normal. Bones and chest wall: No suspicious bony abnormalities. Soft tissues appear unremarkable. IMPRESSION: Questionable finding of mild or early retrocardiac left lower lobe pneumonia seen only on the lateral view. The frontal view by itself would not raise suspicion. [facility] Narrative Medical decision making narrative: 28-year-old female presents to the emergency department for URI symptoms x1 month. Differential diagnosis includes but is not limited to pneumonia, bronchitis, TB, sinusitis, pharyngitis, viral URI, etc. On exam patient is in no acute distress, nontoxic-appearing, all vital signs within normal limits. On lung auscultation, she has very subtle coarse breath sounds in the left lower lobe but otherwise normal and no wheezing. Posterior oropharyngeal erythema present. We will obtain viral swab, strep swab, chest x-ray. Viral swab positive for entero/rhinovirus. Group a strep swab negative. Chest x-ray shows questionable finding of mild cardiac left lower lobe pneumonia which is consistent with patient's clinical findings. After shared decision-making with the patient, we will treat her with doxycycline b.i.d. x5 days for community-acquired pneumonia. She was also prescribed Tessalon Perles for cough and I discussed the importance of keeping his way from any children. Recommended rest, hydration, follow up with primary care doctor within the next week for repeat evaluation. All the patient's questions were answered, she is stable for discharge at this time. <Katina Strange, - Last Filed: 09/14/24 07:24> Lab Data Labs: Lab Results 09/13/24 Range/Units 13:35 Chlamy pneumoniae PCR Not detected (Not Detect) Adenovirus (PCR) Not detected (Not Detect) B. pertussis DNA (PCR) Not detected (Not Detect) B.parapertussis DNA PCR Not detected (Not Detecte) Coronavirus OC43 (PCR) Not detected (Not Detect) Coronavirus HKU1 (PCR) Not detected (Not Detect) Coronavirus 229E (PCR) Not detected (Not Detect) SARS-CoV-2 (PCR) Not detected (Not Detecte) Coronavirus NL63 (PCR) Not detected (Not Detect) Human Metapneumovir PCR Not detected (Not Detect) Influenza Type A (PCR) Not detected (Not Detect) Influenza Type B (PCR) Not detected (Not Detect) M. pneumoniae (PCR) Not detected (Not Detect) Parainfluenza 1 (PCR) Not detected (Not Detect) Parainfluenza 2 (PCR) Not detected (Not Detect) Parainfluenza 3 (PCR) Not detected (Not Detect) Parainfluenza 4 (PCR) Not detected (Not Detect) RSV (PCR) Not detected (Not Detect) Entero/Rhino (PCR) Detected H (Not Detect) Group A Strep (PCR) Negative (Negative) Discharge Plan Departure Patient Disposition: Home Clinical Impression: Rhinovirus Pneumonia Qualifiers: Pneumonia type: due to unspecified organism Laterality: left Lung location: lower lobe of lung Qualified Code(s): J18.9 - Pneumonia, unspecified organism Instructions: DI for Pneumonia -- Adult Activity Restrictions/Additional Instructions: Please rest, hydrate, complete full course of antibiotics. Use the prescribed cough medicine if needed and keep this cough medicine away from children. Follow up with your primary care doctor within the next week and return to the ER for any new or worsening symptoms. Prescriptions: New doxycycline hyclate 100 mg capsule 100 mg PO BID 5 Days Qty: 10 0RF benzonatate 100 mg capsule 100 mg PO BID-TID PRN (Reason: cough) Qty: 15 0RF No Action valacyclovir 500 mg tablet 500 mg PO DAILY Qty: 90 3RF valacyclovir [Valtrex] 1 gram tablet 1,000 mg PO DAILY Qty: 5 0RF prenat.vits,getachew,onz-vkis-lldce Tablet 1 tab PO DAILY Referrals: Ekaterina Sandoval MD [Primary Care Provider] - Stand Alone Forms: Patient Portal/API/Survey, Work Release Note ED Sign-out <Katina Strange DO - Last Filed: 09/14/24 07:24> Cosign ED Attending Cosignature Attestation: I was immediately available in the department for consultation.
[2024-09-13 14:00] LABS: Strep Grp A by PCR Rapid Negative (Negative)
[2024-09-13 14:41] LABS: Adenovirus Not Detected (Not Detect); B. parapertussis Not Detected (Not Detecte); Bordetella pertussis Not Detected (Not Detect); Chlamydophila pneumoniae Not Detected (Not Detect); Coronavirus 229E Not Detected (Not Detect); Coronavirus HKU1 Not Detected (Not Detect); Coronavirus NL 63 Not Detected (Not Detect); Coronavirus OC43 Not Detected (Not Detect); Human Metapneumovirus Not Detected (Not Detect); Human Rhinovirus/Enterovirus Detected (Not Detect); Influenza A Not Detected (Not Detect); Influenza B Not Detected (Not Detect); Mycoplasma pneumoniae Not Detected (Not Detect); Parainfluenza Virus 1 Not Detected (Not Detect); Parainfluenza Virus 2 Not Detected (Not Detect); Parainfluenza Virus 3 Not Detected (Not Detect); Parainfluenza Virus 4 Not Detected (Not Detect); Respiratory Syncytial Virus Not Detected (Not Detect); SARS- CoV-2 Not Detected (Not Detecte)
[2024-09-13] MEDS: DOXYCYCLINE HYCLATE 100 MG TABLET PO (16:03)
[2024-09-13 16:04] VITALS: BP 108/71; PULSE 95; RESP 18; O2SAT 97
== END 2024-09-13 16:21 | disposition home or self-care (01) ==
PROVIDERS: Emergency Provider Physician Assistant; PCP Obstetrics & Gynecology
DX: J18.9 Pneumonia, unspecified organism (principal); B34.8 Other viral infections of unspecified site; J02.9 Acute pharyngitis, unspecified; Z11.52 Encounter for screening for COVID-19
CPT/HCPCS: 71046; 87633; 87651; 99283